=== PATIENT | male | born 1990 | race Caucasian/White ===

== ENCOUNTER 2020-03-31 23:42 | Emergency (ER) | payer SELFPAY ==
[~2020-03-31] VITALS: Ht 180.3 cm; Wt 123.0 kg
[2020-04-01] MEDS ORDERED: PSEUDOEPHEDRINE HCL 30MG TABLET PO STA (00:13)
[2020-04-01] MEDS ORDERED: KETOROLAC 60MG/2ML VIAL IM ONE (00:15)
[2020-04-01 02:00] VITALS: BP 138/79
== END 2020-04-01 02:24 | disposition home or self-care (01) ==
LOC: ER 23:42
DX: R05 Cough (principal); J06.9 Acute upper respiratory infection, unspecified
CPT/HCPCS: 71045; 96372; 99283; J1885

== ENCOUNTER 2020-04-27 18:25 | Emergency (ER) | payer MEDICAID, SELFPAY ==
[~2020-04-27] VITALS: Ht 172.7 cm; Wt 100.0 kg
[2020-04-27 18:27] VITALS: BP 139/97
== END 2020-04-27 21:36 | disposition home or self-care (01) ==
LOC: ER 18:25
DX: K21.9 Gastro-esophageal reflux disease without esophagitis (principal)
CPT/HCPCS: 71045; 93005; 99283

== ENCOUNTER 2020-11-09 10:31 | Emergency (ER) | payer OTHER ==
[~2020-11-09] VITALS: Ht 172.7 cm; Wt 101.0 kg
[2020-11-09] MEDS ORDERED: IPRATROPIUM BROMIDE (0.02%) 0.5MG/2.5ML NEB HHN STA (11:06)
[2020-11-09] MEDS ORDERED: SODIUM CHLORIDE 0.9% 1,000 ML IV ONE (11:15)
[2020-11-09 11:25] LABS: BASOPHILS % 0.5 % (0.0-2.0); EOSINOPHILS % 0.9 % (0.0-5.0); HEMATOCRIT. 41.5 % (42.0-52.0); HEMOGLOBIN. 14.7 g/dL (14.0-18.0); LYMPHOCYTES % 25.2 % (20.0-50.0); MEAN CORPUSCULAR HEMOGLOBIN 29.9 pg (28.0-32.0); MEAN CORPUSCULAR VOLUME 84.7 fL (80.0-94.0); MONOCYTES % 5.2 % (2.0-8.0); NEUTROPHILS % 68.2 % (40.0-76.0); PLATELET 227 x1000/uL (130-400); RED CELL DISTRIBUTION WIDTH 13.2 % (11.6-14.6)
[2020-11-09] MEDS ORDERED: ALBUTEROL (0.083%) 2.5MG/3ML NEB HHN SCH (11:30)
[2020-11-09 11:32] LABS: CHLORIDE 107 mEq/L (98-107)
[2020-11-09] MEDS ORDERED: ALBUTEROL (0.083%) 2.5MG/3ML NEB ONE (11:34)
[2020-11-09] MEDS ORDERED: ALBU6.7H9 INH (12:35)
[2020-11-09] MEDS ORDERED: OMEP20CA14 MT (12:35)
[2020-11-09 12:55] VITALS: BP 119/76
[2020-11-09 13:37] LABS: OPIATES URINE SCREEN NEGATIVE (NEGATIVE); PHENCYCLIDINE URINE SCREEN NEGATIVE (NEGATIVE)
[2020-11-09 13:39] LABS: *BARBITURATES SCREEN URINE NEGATIVE (NEGATIVE)
[2020-11-09 13:41] LABS: *BENZODIAZEPINES SCREEN URINE NEGATIVE (NEGATIVE)
[2020-11-09 13:48] LABS: METHADONE URINE SCREEN NEGATIVE (NEGATIVE)
[2020-11-09 13:49] LABS: *COCAINE SCREEN URINE NEGATIVE (NEGATIVE)
[2020-11-09 13:51] LABS: *AMPHETAMINES SCREEN URINE NEGATIVE (NEGATIVE); CANNABINOID URINE SCREEN NEGATIVE (NEGATIVE)
== END 2020-11-09 12:55 | disposition home or self-care (01) ==
LOC: ER 10:31
DX: R10.13 Epigastric pain (principal)
CPT/HCPCS: 36415; 71045; 80053; 80305; 83690; 83880; 84484; 85025; 93005; 94640; 96360; 99285; J7030; Z7610; A4315

== ENCOUNTER 2022-07-19 10:23 | Emergency (ER) | payer MEDICAID, OTHER ==
[~2022-07-19] VITALS: Ht 175.3 cm; Wt 113.0 kg
[~2022-07-19 10:23] MED LIST: ALBU6.7H3 INH; OMEP20CA14 MT
[2022-07-19 10:39] VITALS: BP 156/90
[2022-07-19 11:26] LABS: BASOPHILS % 0.5 % (0.0-2.0); EOSINOPHILS % 1.6 % (0.0-5.0); HEMATOCRIT. 45.7 % (42.0-52.0); HEMOGLOBIN. 15.8 g/dL (14.0-18.0); MEAN CORPUSCULAR HEMOGLOBIN 29.5 pg (28.0-32.0); MEAN CORPUSCULAR VOLUME 85.4 fL (80.0-94.0); MEAN PLATELET VOLUME 8.9 fl (7.4-10.4); MONOCYTES % 6.4 % (2.0-8.0); NEUTROPHILS % 61.5 % (40.0-76.0); PLATELET 272 x1000/uL (130-400); RED BLOOD CELL COUNT 5.35 mill/uL (4.7-6.1); RED CELL DISTRIBUTION WIDTH 12.6 % (11.6-14.6)
[2022-07-19 11:40] LABS: CHLORIDE 104 mEq/L (98-107)
== END 2022-07-19 13:37 | disposition home or self-care (01) ==
LOC: ER 10:28
DX: R07.9 Chest pain, unspecified (principal); I10 Essential (primary) hypertension
CPT/HCPCS: 36415; 71045; 80053; 84484; 85025; 85379; 99284